=== PATIENT | female | born 1985 | race Caucasian/White ===

== ENCOUNTER 2016-07-17 21:53 | Emergency (ER) | payer OTHER ==
[2016-07-17 22:03] VITALS: BP 147/79
--- NOTE | 2016-07-17 22:18 | ERNOTE ---
Medical Problem HPI - Narrative Date of Service: 07/17/16 - General Chief Complaint: General Assessment Time Seen by Provider: 07/17/16 22:18 Source: patient, RN notes reviewed - Immun/Allergies/Home Medications Immunizations: IMMUNIZATION HX Immunizations Up to Date Yes History of Influenza Vaccine Yes Hx Pneumococcal Vaccination No Allergies/Adverse Reactions: Allergies No Known Allergies Allergy (Verified 07/17/16 22:03) Home Medications: HOME MEDICATIONS Vit#96/Ferrous Fum/FA [ S] 1 tab PO HS 05/11/14 [Last Taken 05/14 21:00] - History of Present History Narrative: Pt presents to ER with c/o exposure to carbon monoxide. 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 Claims she felt dizzy initially, but feels better now. Pt is approx 3 months , and states she was told to come to ER for evaluation. Date (Duration): 07/17/16 Review of Systems - Review of Systems Constitutional: Present: no symptoms reported EYE: Present: no symptoms reported ENT: Present: no symptoms reported Respiratory: Present: no symptoms reported Cardiology: Present: no symptoms reported Gastrointestinal/Abdominal: Present: no symptoms reported Genitourinary: Present: no symptoms reported Musculoskeletal: Present: no symptoms reported Skin: Present: no symptoms reported Neurological: Present: no symptoms reported Endocrine: Present: no symptoms reported Hematologic/Lymphatic: Present: no symptoms reported Psych: Present: no symptoms reported All Other Systems: All systems neg except as marked - Patient's Past Medical History Patient History - Medical: No pertinent hx Patient History - Cardiac/Respiratory: No pertinent hx Patient History - Cancer: No Hx of Cancer Patient History - Surgical Procedures: , Other Patient History - Other: None LMP (females 10-50): - Social History Living Situations: home Abuse History: No History of abuse Psych History: No pertinent hx Smoking Status: Current every day smoker - Immunizations Immunizations Up to Date: Yes Hx Pneumococcal Vaccination: No History of Influenza Vaccine: Yes Physical Exam - Physical Exam General Appearance: Present: wd/wn, alert, no apparent distress Eye Exam: Normal inspection: bilateral, PERRL: bilateral, EOMI: bilateral Ears, Nose, Throat: Present: normal ENT inspection, hearing grossly normal Neck: Present: normal inspection, nontender Respiratory: Present: no respiratory distress, normal breath sounds, no accessory muscle use, chest nontender, lungs clear Cardiovascular/Chest: Present: regular rate, rhythm, no murmur, normal peripheral pulses Gastrointestinal/Abdominal: Present: normal bowel sounds, nontender, nondistended, soft, no organomegaly Neurological Exam: Present: alert, oriented, normal mood/affect, no motor/ sensory deficits Skin Exam: Present: normal color, warm/dry ED Progress - Results and Orders Patient's Lab Results:: I have reviewed the patient's lab results. - Vital Signs Vital Signs: Vital Signs 07/17/16 22:00 Pulse Rate 78 Respiratory 16 Rate Blood Pressure 147/79 O2 Sat by Pulse 100 Oximetry - Progress/Reassessment Chief Complaint: General Assessment Departure - Departure Clinical Impression: Carbon monoxide exposure Disposition: Home self-care Condition: Good Instructions: Carbon Monoxide Poisoning, [id number], Carboxyhemoglobin (COHb ) Test Referrals: Meet Canela DO [Primary Care Provider] -
[2016-07-17 22:55] LABS: Carboxyhemoglobin % 6.4 % (0.5-1.5); Methemoglobin % 0.3 % (0.41-1.15)
== END 2016-07-17 23:58 | disposition home or self-care (01) ==
LOC: ER 21:53
DX: T58.91XA Toxic effect of carbon monoxide from unspecified source, accidental (unintentional), initial encounter (principal); Z33.1 Pregnant state, incidental; Y92.129 Unspecified place in nursing home as the place of occurrence of the external cause; Y99.0 Civilian activity done for income or pay; F17.210 Nicotine dependence, cigarettes, uncomplicated

== ENCOUNTER 2017-01-12 05:48 | Inpatient (IN) | payer SELFPAY ==
[2017-01-12] MEDS ORDERED: OXYTOCIN 20 UNITS in RINGER'S SOLUTION,LACTATED 1,000 ML IV ONE (06:09)
[2017-01-12] MEDS ORDERED: ceFAZolin SODIUM/DEXTROSE,ISO 2 GM/50 ML BAG IV ONE (06:09)
[2017-01-12] MEDS ORDERED: RINGER'S SOLUTION,LACTATED 1,000 ML IV PRN ×2 (06:09)
[2017-01-12] MEDS ORDERED: RINGER'S SOLUTION,LACTATED 1,000 ML IV ONE (11:38)
[2017-01-12] MEDS ORDERED: COD LIVER OIL/ZINC OXIDE 113 APPL TUBE TP PRN (12:09)
[2017-01-12] MEDS ORDERED: SENNOSIDES 8.6 MG TABLET PO PRN (12:09)
[2017-01-12] MEDS ORDERED: ONDANSETRON HCL/PF 2 MG/ML VIAL IV PRN (12:09)
[2017-01-12] MEDS ORDERED: BISACODYL 10 MG SUPP.RECT RC PRN (12:09)
[2017-01-12] MEDS ORDERED: SIMETHICONE 80 MG TAB.CHEW PO PRN (12:09)
[2017-01-12] MEDS: HYDROmorphone HCL 2 MG/ML VIAL IV ONE ×3 (12:14→14:52)
--- NOTE | 2017-01-12 12:27 | OR ---
Operative Report - Dictated Report Narrative: Indication: 31-year-old 3 para 2 at 39-1/7 weeks with prior section 2 desires repeat and sterilization via bilateral salpingectomy. Pre Operative Diagnosis: 39-1/7 week intrauterine , prior section 2, morbid obesity, desires sterilization via bilateral salpingectomy. Omental adhesions. Post Operative Diagnosis: Same. Procedure: Repeat low transverse section. Bilateral salpingectomy. Lysis of omental adhesions. Surgeon: Yessenia Canela DO Supply Room Clerk: OR Staff Anesthesia: Spinal, TAP block Estimated Blood Loss: 1000 mL Urine Output: 150 mL clear urine Fluids Replacement: 1850 mL Drains: White to gravity Surgical Complications: None Specimens: Placenta to freezer Findings: Male born at 1040 on 01/12/2018 in cephalic presentation with Apgars 9 and 9, weighing 3641 g. Omental adhesions to anterior abdominal wall. Normal tubes and ovaries. Extremely thin lower uterine segment approximately 2 mm in thickness. Technique: The patient was taken to the operating room and placed in dorsal supine position with a left lateral tilt. After adequate spinal anesthesia, white catheter inserted, SCDs placed, and 2 g of Ancef given preoperatively, the abdominal cavity was entered using sharp and blunt dissection. Two rolled laps were placed in the pericolic gutters on either side of the uterus. Bladder adhesions were taken down sharply and bluntly to expose the lower uterine segment. A transverse incision was made in the lower uterine segment and extended laterally and upwardly with digital traction. Clear fluid was noted upon amniotomy. The was delivered easily. The cord was clamped and cut after approximately 60 seconds. The was dried off and mouth and nose were gently suctioned while awaiting cord clamping. He was then handed off to awaiting leather scraper. The placenta was allowed to deliver spontaneously. The uterus was cleared of clot and debris. The uterine incision extended into the right uterine vessels and was closed with 0 Vicryl using a running stitch. The first couple throws were running lock stitches around the vessels. A second imbricating layer was placed. Excellent hemostasis was noted. The rolled laps were removed from the abdominal cavitiy. The right fallopian tube was identified and followed out to the fimbriated end. Using Klekalpesh's, the mesosalpinx was coagulated transected with Metzenbaum scissors, then removed and sent to pathology. The same thing was done on the patient's left side. Excellent hemostasis was assured. The peritoneum was closed with a running 3-0 Monocryl. The same suture was used to approximate the rectus and pyramidalis muscles. The fascia was closed with a running 0 Vicryl. The subcutaneous layer was closed with a running 3-0 Monocryl. The same suture was used to approximate the subdermal layer. The skin was closed with a running 4-0 Monocryl and Dermabond. Sponge, lap, needle , and instrument count were correct x 2. Disposition: To post anesthesia care unit in good condition History for MU Definition: * The number of deliveries resulting in a live the patient experienced prior to current hospitalization * The previous delivery of live twins or any live multiple gestation is considered one live event. *If primagravida or nulliparous is documented select zero for the number of previous live births. Live Events: 2
--- NOTE | 2017-01-12 13:08 | OR ---
Anesthesia Procedure Note - Anesthesia Procedure Note Narrative: Vital Signs - Last Taken Temp 36.6 C 01/12/17 12:45 Pulse 50 L 01/12/17 12:45 Resp 16 01/12/17 12:45 BP 117/51 01/12/17 12:45 Pulse Ox 100 01/12/17 12:45 O2 Oxygen Delivery Method Room Air 01/12/17 13:04 ANESTHESIA PROCEDURE NOTE Date of procedure: 01/12/2017. Time of procedure: 1210. Performed by: Chandana Woods CRNA Business Agent: Angie Barron RN . Preprocedure diagnosis: . Status post section. Postoperative analgesia. Post procedure diagnosis: Same. Procedure: Ultrasound-guided bilateral tap block Indications: Postoperative analgesia. Findings: Patient in supine position. Ultrasound utilized to identify fascial layer between internal oblique and transverse abdominis muscles. 21-gauge 4 inch Stimuplex regional block needle was used to inject a total of 20 mL of 0.25 % Marcaine with epinephrine 1 200,000 per side. Skin preparation was performed with ChloraPrep. EBL: Minimal. Fluids: N/A. Specimen: N/A. Post procedure condition: The patient tolerated the procedure well. No complications were noted. Thank you for this consultation hCandana Woods CRNA
[2017-01-12] MEDS: KETOROLAC TROMETHAMINE 30 MG/ML VIAL IV PRN ×2 (13:12→19:22)
[2017-01-12] MEDS: oxyCODONE HCL/ACETAMINOPHEN 1 TAB TABLET PO PRN ×2 (15:25→19:21)
[2017-01-12] MEDS: ENOXAPARIN SODIUM 40 MG/0.4 ML SYRG SC SCH (20:28)
[2017-01-12] MEDS: DOCUSATE SODIUM 100 MG CAPSULE PO SCH (20:28)
[2017-01-13] MEDS: oxyCODONE HCL/ACETAMINOPHEN 1 TAB TABLET PO PRN ×7 (00:50→23:45)
[2017-01-13] MEDS: KETOROLAC TROMETHAMINE 30 MG/ML VIAL IV PRN ×2 (02:27→09:43)
[2017-01-13] MEDS: DOCUSATE SODIUM 100 MG CAPSULE PO SCH ×2 (08:28→20:36)
--- NOTE | 2017-01-13 11:43 | PN ---
Subjective - Date and Time Seen Date: 01/13/17 Time: 11:42 Objective - Vitals Vitals: Last Vital Signs Temp 36.3 C L 01/13/17 06:54 Pulse 66 01/13/17 06:54 Resp 18 01/13/17 06:54 BP 139/69 01/13/17 06:54 Pulse Ox 100 01/13/17 06:54 Patient denies complaints. Tolerating regular diet. Ambulating without difficulty. Pain well controlled. Lochia wnl. Abdomen - soft, appropriately tender Incision - clean, dry, intact Uterus - firm, at umbilicus -1 No calf tenderness Impression: Post op day #1 s/p repeat section with bilateral salpingectomy. Morbid obesity-stable. Anemia-stable. Plan: Continue routine post-operative/ care Cauti Physician Documentation - Urinary Catheter Management Uretheral (Rodriguez) Date of Insertion: 01/12/17 Time of Insertion: 10:10 Date of Removal: 01/12/17 Time of Removal: 20:35
[2017-01-13] MEDS: IBUPROFEN 800 MG TABLET PO PRN ×2 (15:53→23:45)
[2017-01-13] MEDS: ENOXAPARIN SODIUM 40 MG/0.4 ML SYRG SC SCH (20:37)
[2017-01-14] MEDS: oxyCODONE HCL/ACETAMINOPHEN 1 TAB TABLET PO PRN ×4 (05:59→19:10)
[2017-01-14] MEDS: IBUPROFEN 800 MG TABLET PO PRN ×3 (06:00→20:03)
[2017-01-14] MEDS: DOCUSATE SODIUM 100 MG CAPSULE PO SCH ×2 (08:39→20:03)
--- NOTE | 2017-01-14 13:12 | PN ---
Subjective - Date and Time Seen Date: 01/14/17 Time: 13:10 Objective - Vitals Vitals: Last Vital Signs Temp 36.6 C 01/14/17 07:07 Pulse 62 01/14/17 07:07 Resp 18 01/14/17 07:07 BP 139/72 01/14/17 07:07 Pulse Ox 98 01/14/17 07:07 Patient denies complaints. Ambulating well. Tolerating regular diet. Pain well controlled. Lochia wnl. Abdomen - soft, appropriately tender Incision - clean, dry, intact Uterus - firm, at umbilicus -2 No calf tenderness Impression: Post op day #2 s/p repeat section with bilateral salpingectomy. Morbid obesity-stable. Anemia-stable. Plan: Continue routine post-operative/ care Cauti Physician Documentation - Urinary Catheter Management Uretheral (Rodriguez) Date of Insertion: 01/12/17 Time of Insertion: 10:10 Date of Removal: 01/12/17 Time of Removal: 20:35
[2017-01-14] MEDS: ENOXAPARIN SODIUM 40 MG/0.4 ML SYRG SC SCH (20:06)
[2017-01-15] MEDS: oxyCODONE HCL/ACETAMINOPHEN 1 TAB TABLET PO PRN ×3 (00:10→09:01)
[2017-01-15] MEDS: IBUPROFEN 800 MG TABLET PO PRN ×2 (03:10→09:01)
[2017-01-15 07:17] VITALS: BP 158/78
--- NOTE | 2017-01-15 08:19 | PN ---
Subjective - Date and Time Seen Date: 01/15/17 Time: :17 Objective - Vitals Vitals: Last Vital Signs Temp 36.5 C 01/15/17 06:40 Pulse 62 01/15/17 06:40 Resp 18 01/15/17 06:40 BP 158/78 01/15/17 06:40 Pulse Ox 98 01/15/17 06:40 Patient denies complaints. Ambulating without difficulty. Tolerating regular diet. Pain well controlled. Lochia wnl. Abdomen - soft, appropriately tender. Tinea corporis around incision resolved. Incision - clean, dry, intact Uterus - firm, at umbilicus -3 No calf tenderness Impression: Post op day #3 s/p repeat section with bilateral salpingectomy. Morbid obesity-stable. Anemia-stable. Plan: Routine discharge instructions Cauti Physician Documentation - Urinary Catheter Management Uretheral (Rodriguez) Date of Insertion: 01/12/17 Time of Insertion: 10:10 Date of Removal: 01/12/17 Time of Removal: 20:35
[2017-01-15] MEDS: DOCUSATE SODIUM 100 MG CAPSULE PO SCH (09:01)
== END 2017-01-15 11:30 | disposition home or self-care (01) | DRG 765 ==
LOC: OB 05:48
PROVIDERS: ADMIT Obstetrics & Gynecology; ATTEND Obstetrics & Gynecology
PROC: 0UB70ZZ Excision of Bilateral Fallopian Tubes, Open Approach (ICD-10-PCS; 2017-01-12)
PROC: 4A1HXCZ Monitoring of Products of Conception, Cardiac Rate, External Approach (ICD-10-PCS; 2017-01-12)
PROC: 10D00Z1 Extraction of Products of Conception, Low, Open Approach (ICD-10-PCS; principal; 2017-01-12 10:15)
DX: O13.4 Gestational [pregnancy-induced] hypertension without significant proteinuria, complicating childbirth (principal); Z68.43 Body mass index [BMI] 50.0-59.9, adult; E66.01 Morbid (severe) obesity due to excess calories; O99.214 Obesity complicating childbirth; O99.02 Anemia complicating childbirth; D50.8 Other iron deficiency anemias; O34.211 Maternal care for low transverse scar from previous cesarean delivery; G43.909 Migraine, unspecified, not intractable, without status migrainosus; Z3A.39 39 weeks gestation of pregnancy; Z37.0 Single live birth; Z30.2 Encounter for sterilization

== ENCOUNTER 2017-03-13 08:33 | Emergency (ER) | payer SELFPAY ==
--- NOTE | 2017-03-13 09:23 | ERNOTE ---
Time Seen by Provider: 03/13/17 09:21 Stated Complaint: PINK EYE, UPPER RESP Source: patient Exam Limitations: no limitations Immunizations: IMMUNIZATION HX Immunizations Up to Date Yes History of Influenza Vaccine No Hx Pneumococcal Vaccination No Allergies/Adverse Reactions: Allergies No Known Allergies Allergy (Verified 03/13/17 08:47) Home Medications: HOME MEDICATIONS Ibuprofen [Motrin] 200 - 800 mg PO Q6H PRN #100 tab 01/13/17 [Last Taken Unknown ] Polymyxin B Sulf/Trimethoprim [Polytrim Ophthalmic Solution] 2 drop EACHEYE TID #10 ml 03/13/17 [Last Taken Unknown] - History of Present Ilness Narrative: Patient is an active smoker she complains of a slight dry cough additionally she has red itchy eyes she does not have a fever she has not taken any medications. Her child has had pinkeye. Review of Systems - Review of Systems Constitutional: Present: no symptoms reported EYE: Present: no symptoms reported ENT: Present: nose congestion Respiratory: Present: cough Cardiology: Present: no symptoms reported Gastrointestinal/Abdominal: Present: no symptoms reported Genitourinary: Present: no symptoms reported - Patient's Past Medical History Patient History - Medical: No pertinent hx Patient History - Cardiac/Respiratory: No pertinent hx Patient History - Cancer: No Hx of Cancer Patient History - Surgical Procedures: , Other Patient History - Other: None LMP (females 10-50): other - Social History Living Situations: spouse Abuse History: No History of abuse Psych History: No pertinent hx Smoking Status: Current every day smoker Have you smoked in the past 12 months: Yes Do you dip or chew tobacco: No Alcohol Use: none Drug Use: none - Immunizations Immunizations Up to Date: Yes Hx Pneumococcal Vaccination: No History of Influenza Vaccine: No Physical Exam - Physical Exam General Appearance: Present: wd/wn, alert, no apparent distress Head Exam: Present: normal inspection, no evidence of injury Eye Exam: Other: bilateral - both conjunctivae appear injected there are no foreign bodies there is no cobblestoning anterior chamber is clear pupils are equal round and reactive to light and accommodation. Ears, Nose, Throat: Present: normal ENT inspection, normal pharynx Neck: Present: normal inspection, nontender Respiratory: Present: no respiratory distress, normal breath sounds, no accessory muscle use, chest nontender, lungs clear Cardiovascular/Chest: Present: regular rate, rhythm, no murmur, normal peripheral pulses ED Progress - Vital Signs Patient's Vital Signs:: I have reviewed the patient's vital signs. Vital Signs: Vital Signs 03/13/17 08:43 Temperature 36.5 C Pulse Rate 101 H Respiratory 15 Rate Blood Pressure 156/76 O2 Sat by Pulse 97 Oximetry - Progress/Reassessment Chief Complaint: Upper Respiratory Symptoms Departure Clinical Impression: Bilateral conjunctivitis Qualifiers: Conjunctivitis type: unspecified Qualified Code(s): H10.9 - Unspecified conjunctivitis - Departure Disposition: Home self-care Condition: Good Instructions: Bacterial Conjunctivitis, [id number] Referrals: Fallon Cordon MD [Primary Care Provider] - Prescriptions: Polymyxin B Sulf/Trimethoprim [Polytrim Ophthalmic Solution] 2 drop EACHEYE TID #10 ml
[2017-03-13 09:55] VITALS: BP 154/74
== END 2017-03-13 09:51 | disposition home or self-care (01) ==
LOC: ER 08:33
DX: H10.9 Unspecified conjunctivitis (principal); F17.200 Nicotine dependence, unspecified, uncomplicated